=== PATIENT | female | born 1985 | race African-American/Black ===

== ENCOUNTER 2019-07-03 09:05 | Emergency (ER) | payer OTHER ==
[~2019-07-03] VITALS: Ht 170.2 cm; Wt 102.1 kg
[2019-07-03 09:13] VITALS: Ht 170.2 cm; Wt 102.1 kg
[2019-07-03 10:46] VITALS: BP 149/82
== END 2019-07-03 10:46 | disposition home or self-care (01) ==
LOC: ED 09:05
DX: R51 Headache (principal); R19.7 Diarrhea, unspecified; R09.81 Nasal congestion; R05 Cough; R10.9 Unspecified abdominal pain